=== PATIENT | female | born 1980 | race Caucasian/White ===

== ENCOUNTER 2017-06-14 20:44 | Emergency (ER) | payer MEDICAID ==
[2017-06-14 21:21] VITALS: RESP 16; TEMP 98.1
[2017-06-14 21:22] VITALS: O2SAT 98
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
[2017-06-14] MEDS ORDERED: IBUPROFEN 600 MG TAB PO ONE ×2 (22:03→22:04)
[2017-06-14 22:12] VITALS: BP 155/100; PULSE 85
== END 2017-06-14 22:09 | disposition home or self-care (01) ==
DX: S70.02XA Contusion of left hip, initial encounter (principal); S93.402A Sprain of unspecified ligament of left ankle, initial encounter; S80.02XA Contusion of left knee, initial encounter; I10 Essential (primary) hypertension; W23.0XXA Caught, crushed, jammed, or pinched between moving objects, initial encounter; Y92.811 Bus as the place of occurrence of the external cause; Y93.89 Activity, other specified